=== PATIENT | female | born 1990 | race Caucasian/White ===

== ENCOUNTER 2022-07-26 21:51 | Outpatient (CLI) | payer BC ==
[~2022-07-26] VITALS: Ht 165.1 cm; Wt 90.9 kg
--- NOTE | 2022-07-26 22:00 | NUR ---
G1L0. 38.2. Ambulatory to [facility] 5 with spouse. Clean gown on. EFM and TOCO explained and applied. Pt states she is "unsure" if her water broke or not. She states "I have been going to the bathroom a lot and the fluid is clear and my urine is not normally clear." Pt sates she also smelt the fluid and it did not smell like urine. Denies contractions or vaginal bleeding. Reports good movement. Plan of care explained. 2209: Amniotrace negative X2. SVE /-3. 2223: notified. Pt has called prior to arrival and explained her story to him. See physican notification. 2240: Discharge instructions explained to pt and spouse who verbalize their understanding. Denies questions at this time. Pt ambulatory off unit and home with spouse.
[2022-07-26 22:35] VITALS: BP 126/74; PULSE 79; TEMP 98.3
== END 2022-07-26 22:40 | disposition home or self-care (01) ==
LOC: LDRO 21:51
DX: Z34.93 Encounter for supervision of normal pregnancy, unspecified, third trimester (principal); Z3A.38 38 weeks gestation of pregnancy